=== PATIENT | male | born 1950 | race Caucasian/White ===

== ENCOUNTER 2017-01-16 15:29 | Emergency (ER) | payer OTHER ==
[~2017-01-16] VITALS: Ht 170.2 cm; Wt 72.7 kg
[~2017-01-16 15:29] MED LIST: AMIL5TAB2 PO; ATOR20TA PO; CHOL10008 PO; CLOP75TA28 PO; CYCL25CA8 PO; FURO-129 PO; INSU100V SUBQ; INSU100V7 SUBQ; LACT1CAP73 PO; LISI-567 PO; OMEG1CAP99 PO; PARO10OR3 PO; SULF-239 PO; TEMA15CA3 PO; ZOV800 PO
[2017-01-16 15:45] VITALS: BP 104/61; PULSE 71; RESP 18; O2SAT 97
--- NOTE | 2017-01-16 16:48 | ED.REPORT ---
HPI-General Illness Date of Service Jan 16, 2017 ED Provider: Marlon Dunbar MD Pt is a 66 y/o male w/ a hx of AML, CAD s/p CABG x5 and stents, MO x2, HLD, HTN , DM, chronic liver disease, presenting to the ED due to incidental hyperkalemia finding. The patient had labs drawn at 11:00 today which were remarkable for hyperkalemia with potassium of 6.4 and was recommended to come to the ED by his oncologist Dr. Zambrano. He is relatively asymptomatic and his only complaints are numbness/tingling, dizziness. Pt denies CP, SOB, palpitations, nausea, vomiting. Nursing Notes Stated Complaint: HIGH POTASSIUM LEVEL/SENT FROM DR ZAMBRANO Chief Complaint: General Complaint Nursing Notes Reviewed: Yes Allergies: Coded Allergies: Penicillins (Verified Allergy, Severe, 01/16/17) TAPE (Verified Allergy, Intermediate, 01/16/17) morphine (Verified Allergy, Intermediate, vomiting, 01/16/17) Uncoded Allergies: VYTORIN (Allergy, Severe, 01/14/09) Scheduled Acyclovir (Acyclovir) 800 Mg Tab 800 MG PO TID Amiloride (Amiloride) 5 Mg Tablet 5 MG PO DAILY Atorvastatin (Lipitor) 20 Mg Tablet 20 MG PO DAILY Clopidogrel (Clopidogrel) 75 Mg Tablet 75 MG PO DAILY Cyclosporine (Cyclosporine) 25 Mg Capsule 75 MG PO BID Furosemide (Lasix) 20 Mg Tablet 20 MG PO DAILY Insulin Glargine (Lantus U100 Insulin Vial) 100 Unit/Ml Vial 1 UNIT SUBQ QPM Insulin Lisp Protam/Lisp Human (HumaLOG 50/50 U100 Insulin Vial) 100 Unit/Ml Ml 1 UNIT SUBQ prn Lisinopril (Lisinopril) 20 Mg Tablet 20 MG PO DAILY Paroxetine (Paxil) 10 Mg/5 Ml Oral.susp 20 MG PO HS Sulfamethoxazole/Trimeth 400-80 mg (Bactrim) 1 Each Tablet 1 TABLET PO BID Scheduled PRN Temazepam (Restoril) 15 Mg Capsule 15 MG PO HS PRN PRN For Insomnia Miscellaneous Medications Cholecalciferol (Vitamin D3) (Vitamin D3) 1,000 Unit Tab.chew 1,000 UNIT PO Lactobacillus Combo No.11 (Probiotic) 1 Each Cap.sprink 1 EACH PO [place]-3 Fatty Acids/Fish Oil (Fish Oil 1,200 mg Softgel) 1 Each Capsule 1 EACH PO General Time Seen by MD: 16:40 Chief Complaint Other (Hyperkalemia) Hx Obtained From: Patient Arrived By: Walk-in Onset Occurred: 5 - 8 hours ago Symptom Duration: Since onset Severity: Current: No pain currently Severity: Maximum: No pain Similar Sx Previous: No Past Medical History Past Medical History 1. 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 2. Dztqo-[id number]-[id number] disease manifested mainly by diarrhea. See oncology comments of August 07 for details. 3. Veno-occlusive disease, or VOD, see comments above his liver disease. 4. Hyperlipidemia. 5. Prior transfusional iron overload. 6. Osteoporosis 7. Diabetes. 8. Coronary artery disease, status post bypass and stents 9. Chronic smoking 10. Chronic musculoskeletal pain. 11. 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 12. Chronic transaminitis 13. History of MO x2 14. Cholelithiasis 15. Hiatal hernia 16. Chronic liver disease with jaundice 17. Depression 18. Hypertension Past Surgical History CABG x5 in 1995 Cardiac stents x2 Stem cell transplant Smoking History Current Every Day Smoker Social History Alcohol Use: Denies alcohol use Drug Use: THC Ambulatory Status Independent Review of Systems Full Review of Systems Respiratory: Denies: Shortness of breath Cardiovascular: Denies: Chest pain, Palpitations GI: Reports: Diarrhea, Denies: Nausea, Vomiting Neurologic: Reports: Dizziness, Lightheaded, Numbness Complete sys rev & neg: except as marked. Physical Exam Vital Signs Vital Signs Date Time Temp Pulse Resp B/P Pulse Ox O2 Delivery O2 Flow Rate FiO2 01/16/17 18:15 36.2 69 16 107/64 97 Room Air 01/16/17 15:45 36.8 71 18 104/61 97 Room Air Initial VS: Reviewed, Vital signs normal Head / Eyes: Atraumatic, Normocephalic ENT: Mucous membranes moist, Conjunctiva normal Neck: Supple, Full range of motion Respiratory: Breath sounds normal, Clear to auscultation, No respiratory distress Cardiovascular: Regular rate & rhythm, Heart sounds normal, Intact distal pulses Abdomen / GI: Soft, Non-tender Extremities: Vascular intact, Neuro intact, No swelling Neurologic: Alert, Oriented, Nonfocal Psychiatric: Mood/affect normal, Behavior normal, Normal thought content General/Constitutional: Awake, Alert, No acute distress, Cooperative, Not toxic appearing Appearance / Presentation: Positive: Icteric (mild, chronic) Skin: Warm, Dry, Intact Color / Condition: Positive: Jaundice present (mild, chronic) Interpretation & Diagnostics Lab Results Interpretation Result Diagram: 01/16/17 1628 01/16/17 1628 Test 01/16/17 16:28 White Blood Count 7.7th/mm3 (3.8-10.1) Red Blood Count 2.97mil/mm3 (4.40-5.80) Hemoglobin 11.4g/dL (13.8-17.2) Hematocrit 32.2% (41.0-50.0) Mean Corpuscular Volume 108.4fL (81-100) Mean Corpuscular Hemoglobin 38.4pg (27.0-35.0) Mean Corpuscular Hemoglobin Concent 35.4% (32.0-37.0) Red Cell Distribution Width 12.7% (12.3-15.4) Platelet Count 104bil/L (150-400) Neutrophils (%) (Auto) 53.8% (40-74) Lymphocytes (%) (Auto) 30.1% (14-46) Monocytes (%) (Auto) 7.8% (4-12) Eosinophils (%) (Auto) 6.8% (0-5) Basophils (%) (Auto) 1.4% (0-3) Sodium Level 133mEq/L (134-144) Potassium Level 5.9mEq/L (3.5-5.2) Chloride Level 102mEq/L (97-108) Carbon Dioxide Level 20mmol/L (18-29) Blood Urea Nitrogen 29mg/dL (8-27) Creatinine 1.65mg/dL (0.76-1.27) Estimat Glomerular Filtration Rate 45mL/min (>59) Glucose Level 264mg/dL (60-99) Calcium Level 8.8mg/dL (8.5-10.1) Total Bilirubin 0.9mg/dL (0.0-1.2) Aspartate Amino Transf (AST/SGOT) 53U/L (0-50) Alanine Aminotransferase (ALT/SGPT) 36U/L (0-44) Alkaline Phosphatase 268U/L (25-160) Troponin T < 0.010ug/L (0.0-0.011) Total Protein 6.9g/dL (6.4-8.4) Albumin 3.4g/dL (3.4-5.0) Hold Dean Top Tube Received (Received) ECG Interpretation ECG Interpretation: No peaked T waves, no QRS widening Time: 17:06 Interpreted by: ED physician Normal ECG Interpretation: Normal ECG w/ rate of... (69), Normal rate, Normal sinus rhythm, No acute ischemic changes, Normal QRS, Normal axis, Normal intervals, Adequate tracing X-Ray Chest Interpretation Chest Xray Interpretation: IMPRESSION: 1. Trace right-sided effusion. 2. Patchy right basilar opacity compatible atelectasis versus pneumonia. Dictated by: Deonna Moya MD, PhD on 01/16/2017 at 17:34 Approved by: Deonna Moya MD, PhD on 01/16/2017 at 17:35 View: Portable, 1 view Interpretation / Wet Read by: Interpret - Radiologist Re-Eval/Medical Decision Med Decision/Clinical Course 66-year-old male history of leukemia, chronic kidney disease, cirrhosis sent in by his oncologist for elevated potassium of 6.4 earlier today. His amelioride was stopped last night. His potassium at this time is 5.9. There are no EKG changes. He is asymptomatic. I discussed with his oncologist who will see him tomorrow for recheck. He was given 1 dose of Kayexalate here and is advised to take an extra dose of his Lasix tonight for his hyperkalemia. Return precautions given. Source of Hx: Old records Time of Eval: 17:40 Re-Evaluation/Progress Note: Pt rechecked. Informed pt of plan for discharge. Pt understands and agrees with plan for discharge. F/U instructions and RTER warnings given. All questions addressed. Consultation : Referral / Consult Name: Jad Zambrano MD Call Returned at: 17:41 Cath Lab: Agrees with eval, Agrees with plan Note: Case discussed with oncologist. Agrees with plan for discharge with f/u with him tomorrow. Counseled Regarding: Diagnosis, Lab results, Need for follow-up, When/why to return to ED Discharge & Departure Primary Impression: Hyperkalemia Additional Impressions: Chronic kidney disease Chronic kidney disease stage: unspecified stage Qualified Code: N18.9 - Chronic kidney disease, unspecified Pleural effusion, right Chronic liver disease Disposition: Home Discharge Condition All VS Reviewed: Yes Condition: Stable Patient Instructions: Hyperkalemia (ED) Additional Instructions: Your potassium is elevated in the ED today but not critically. It decreased from 6.4 to 5.9 in the duration of about 5 hours which is reassuring. The cause of this is unclear but may be related to medications. Take an extra dose of Lasix tonight. Follow-up with Dr. Zambrano tomorrow as scheduled. Return to the emergency department if you experience chest pain, shortness of breath, or for other concerning symptoms. Referrals: Cameron Palumbo DO (PCP) Jad Zambrano MD Scribe Attestation Portions of this note were transcribed by Tripp Singh. I, Dr. Dunbar personally performed the history, physical exam and medical decision-making; I reviewed and confirmed the accuracy of the information in the transcribed note. copies to: Jad Zambrano MD; Cameron Palumbo Ben M MD Jan 16, 2017 16:48 TRIPP SINGH Jan 16, 2017 16:55
[2017-01-16 17:02] LABS: BASOPHILS % (AUTO) 1.4 % (0-3); EOSINOPHILS % (AUTO) 6.8 % (0-5); MONOCYTES % (AUTO) 7.8 % (4-12); Mean Corpuscular Hemoglobin 38.4 pg (27.0-35.0); Mean Corpuscular Volume 108.4 fL (81-100); NEUTROPHILS % (AUTO) 53.8 % (40-74); Platelet Count 104 bil/L (150-400)
--- NOTE | 2017-01-16 17:36 | DRSVH ---
PROCEDURE: X-RAY CHEST ONE VIEW, PORTABLE ([id number]) INDICATIONS: chest pain TECHNIQUE: One view of the chest was acquired. COMPARISON: [facility], CR, CHEST 2VW, 07/29/2014, 11:01. FINDINGS: Surgical changes and devices: Status post CABG procedure. Lungs and pleura: Trace right-sided pleural effusion noted. Patchy opacity noted in the right lung base. Calcified pleural plaque noted in the left lung base. Mediastinum: Mediastinal contours appear normal. Heart size is normal. Bones and chest wall: No suspicious bony lesions. Overlying soft tissues appear unremarkable. IMPRESSION: 1. Trace right-sided effusion. 2. Patchy right basilar opacity compatible atelectasis versus pneumonia. Dictated by: Deonna Moya MD, PhD on 01/16/2017 at 17:34 Approved by: Deonna Moya MD, PhD on 01/16/2017 at 17:35
[2017-01-16 18:15] VITALS: BP 107/64; PULSE 69; RESP 16; O2SAT 97
== END 2017-01-16 18:16 | disposition home or self-care (01) ==
LOC: SED 15:29
DX: E87.5 Hyperkalemia (principal); I12.9 Hypertensive chronic kidney disease with stage 1 through stage 4 chronic kidney disease, or unspecified chronic kidney disease; N18.9 Chronic kidney disease, unspecified; J90 Pleural effusion, not elsewhere classified; K76.9 Liver disease, unspecified; I25.2 Old myocardial infarction; I25.10 Atherosclerotic heart disease of native coronary artery without angina pectoris; E78.5 Hyperlipidemia, unspecified; E11.29 Type 2 diabetes mellitus with other diabetic kidney complication; F17.200 Nicotine dependence, unspecified, uncomplicated; F12.10 Cannabis abuse, uncomplicated; Z87.19 Personal history of other diseases of the digestive system; Z95.1 Presence of aortocoronary bypass graft; Z85.6 Personal history of leukemia; Z94.84 Stem cells transplant status; Z79.4 Long term (current) use of insulin; Z88.0 Allergy status to penicillin; Z88.5 Allergy status to narcotic agent; Z88.8 Allergy status to other drugs, medicaments and biological substances